=== PATIENT | male | born 1955 | race Caucasian/White ===

== ENCOUNTER 2016-12-18 13:37 | Observation (INO) ==
[2016-12-18 14:24] LABS: MANUAL DIFF NEEDED? NO
--- NOTE | 2016-12-18 14:24 | Diag Imaging Result Doc PS360 ---
EXAM: CHEST-2 VIEWS HISTORY: CP TECHNIQUE: COMPARISON: 04/21/2011 FINDINGS: The lungs are well expanded. The heart is not enlarged. The vessels are not distended. There are no infiltrates. No pleural effusions. IMPRESSION: No acute abnormality. Electronically signed by Parrish Lee 12/18/2016 2:21 PM
[2016-12-18 14:32] LABS: BASO% 0.3 % (0.0-0.8); EOS# 0.35 X1000 (0.0-0.7); EOS% 6.1 % (0.0-10.0); HEMATOCRIT 41.1 % (42.0-52.0); HEMOGLOBIN 14.5 g/dL (14.0-18.0); LYMPH% 24.4 % (20.5-51.1); MCH 31.3 PG (27-31); MCHC 35.3 g/dL (33-37); MCV 88.8 FL (81-99); MONO# 0.72 X1000 (0.11-0.59); MONO% 12.5 % (1.7-9.3); MPV 10.9 FL (7.4-10.4); NEUT% 56.7 % (42.2-75.2); PLT 95 X1000 (130-400); RBC 4.63 XMIL (4.7-6.1)
[2016-12-18 14:36] LABS: INR 1.01; PROTIME 10.6 Seconds (9.2-11.7)
[2016-12-18 14:46] LABS: ALBUMIN 3.9 g/dL (3.5-5.0); CALCIUM 10.1 mg/dL (8.8-10.2); MAGNESIUM 1.8 mg/dL (1.5-2.7); TOTAL BILIRUBIN 0.71 mg/dL (0.20-1.00); TOTAL PROTEIN 6.4 g/dL (6.3-8.3)
[2016-12-18] MEDS ORDERED: ASPIRIN PO ONE (15:32)
[2016-12-18] MEDS ORDERED: ZOFRAN IV ONE (17:00)
[2016-12-18] MEDS ORDERED: MORPHINE IV ONE (17:00)
--- NOTE | 2016-12-18 17:17 | PROVIDER DOCUMENTATION ---
This chart was entered by Lynda Galloway Scribe, acting as scribe for Patricio Alvarado MD. HPI-Chest Pain - General Chief Complaint: Chest Pain Stated Complaint: CP Time Seen by Provider: 12/18/16 14:26 Source: patient Allergies/Adverse Reactions: Patient Allergies Allergy/AdvReac Type Severity Reaction Status Date / Time etodolac [From Lodine] Allergy Mild RASH Verified 10/08/12 10:15 Home Medications: Home Medication List Medication Instructions Recorded Confirmed Last Taken Type Allopurinol 300 mg PO DAILY 10/08/12 10/08/12 03/05/13 08:00 History Cetirizine HCl [Zyrtec] 10 mg PO DAILY 10/08/12 10/08/12 03/05/13 08:00 History Gabapentin [Neurontin] 300 mg PO 4XDAY 10/08/12 10/08/12 03/05/13 08:00 History Hydrochlorothiazide 25 mg PO DAILY 10/08/12 10/08/12 03/05/13 08:00 History Insulin Detemir [Levemir] 36 units SQ DAILY 10/08/12 10/08/12 03/05/13 08:00 History Insulin Lispro [Humalog] 10 units SQ TID 10/08/12 10/08/12 03/05/13 08:00 History Omeprazole 20 mg PO DAILY 10/08/12 10/08/12 03/05/13 08:00 History SIMVAstatin [Zocor] 20 mg PO QHS 10/08/12 10/08/12 03/05/13 08:00 History Sitagliptin Phos/Metformin HCl 1 each PO BID 10/08/12 10/08/12 03/05/13 20:00 History [Janumet 50-1,000 mg Tablet] Topiramate 25 mg PO BID 10/08/12 10/08/12 10/08/12 06:00 History - History of Present Illness-CP Nature of Presenting Problem: Pt is a 61 year old male who came to the ED with a cc of chest pain that started this morning. The pt reports that the chest pain was tight and radiating out into in left arm. Pt denies N/V. No hemotysis. Location: reports: central Chest Pain Radiation: reports: arms (Left) Quality of Pain: reports: tightness Severity in ED: mild Onset/Duration: this morning Timing: still present Context/Activities at Onset: reports: none Modifying Factors: improves with: nothing Associated Symptoms: reports: denies symptoms Nitro Today/Relief: no nitro taken today Aspirin Treatment Today: no aspirin today Prior Chest Pain/Cardiac Workup: reports: no prior chest pain Similar Symptoms Previously?: No Recently Seen Here or By Another Healthcare Provider: No Review of Systems - Adult - REVIEW OF SYSTEMS - ADULT Constitutional: denies: chills, fever Eyes: reports: no symptoms reported Ears, Nose, Mouth & Throat: denies: sinus problem, mouth/dental pain Cardiovascular: reports: chest pain. denies: heart murmur, orthopnea Respiratory: denies: cough, shortness of breath Gastrointestinal: reports: no symptoms reported Genitourinary: reports: no symptoms reported Musculoskeletal: reports: no symptoms reported Integumentary: reports: no symptoms reported Neurological: reports: headache/migraines. denies: numbness, seizure Psychiatric: reports: no symptoms reported Endocrine: reports: no symptoms reported Hematologic/Lymphatic: reports: no symptoms reported Allergic/Immunologic: reports: no symptoms reported All Other Systems: Reviewed and Negative Past History - Adult - PAST MEDICAL HISTORY-ADULT Review of Records: reports: Nursing Assessment Review Major Childhood Illnesses: reports: denies history Cardiovascular: reports: cardiac disease, HTN Respiratory: reports: denies history Gastrointestinal: reports: GERD Obstetrical/Gynecological: reports: denies history Genitourinary: reports: denies history Musculoskeletal: reports: denies history Neurological: reports: denies history Endocrine/Immune: reports: Diabetes Other Conditions: reports: denies history - IMMUNIZATION STATUS Childhood Immunizations: See Nurse Assessment Flu Vaccine: See Nurse Assessment - FAMILY HISTORY Family History: reviewed, not pertinent Physical Exam-General - PHYSICAL EXAM-ADULT Initial Vital Signs Reviewed: Yes - CONSTITUTIONAL General Appearance: appears well, alert, no apparent distress - EYES Eyes: PERRL/EOMI, pink conjunctivae - HEAD, EARS, NOSE, MOUTH & THROAT HENMT: normocephalic/atraumatic, moist mucous membranes - NECK Neck: non-tender, full range of motion - RESPIRATORY Respiratory: chest non-tender, lungs clear - CARDIOVASCULAR Cardiovascular: normal peripheral pulses, regular rate, rhythm - GASTROINTESTINAL (ABDOMEN) Abdominal Exam: normal bowel sounds, non tender, hernia - MUSCULOSKELETAL Back Exam: normal inspection, no CVA tenderness Extremity: normal range of motion, non-tender - SKIN Integumentary: normal color, normal turgor - NEUROLOGIC Neurologic: grossly normal - PSYCHIATRIC Psych/Mental Status: normal mood/affect, normal thought content, normal thought process, oriented x 3 Progress - PLAN OF CARE/RESULTS Progress/Plan/Lab Results: Vital Signs - 8 hr 12/18/16 13:39 12/18/16 15:44 Temperature 97.6 F Pulse Rate 77 75 Respiratory Rate 18 24 Blood Pressure 173/68 147/99 O2 Sat by Pulse Oximetry 100 97 Laboratory Results - last 24 hr 12/18/16 12/18/16 12/18/16 13:52 13:52 13:52 WBC 5.74 RBC 4.63 L Hgb 14.5 Hct 41.1 L MCV 88.8 MCH 31.3 H MCHC 35.3 RDW Std Deviation 14.2 Plt Count 95 L MPV 10.9 H Immature Gran % (Auto) 0.0 Neut % (Auto) 56.7 Lymph % (Auto) 24.4 [place] % (Auto) 12.5 H Eos % (Auto) 6.1 Baso % (Auto) 0.3 Immature Gran # (Auto) 0.00 Neut # (Auto) 3.25 Lymph # (Auto) 1.40 [place] # (Auto) 0.72 H Eos # (Auto) 0.35 Baso # (Auto) 0.02 PT INR PTT (Actin FS) D-Dimer < 0.10 Sodium 134 L Potassium 4.0 Chloride 96 L Carbon Dioxide 25 Anion Gap 13 BUN 26 H Creatinine 1.4 H Estimated GFR/1.73 m2 52 BUN/Creatinine Ratio 19 Glucose 336 H Calculated Osmolality 286 Calcium 10.1 Magnesium 1.8 Total Bilirubin 0.71 AST 21 ALT 20 Alkaline Phosphatase 175 H Creatine Kinase 62 Troponin T Fcp-M-Nzctaokluxk Pept Total Protein 6.4 Albumin 3.9 Globulin 2.5 Albumin/Globulin Ratio 1.6 12/18/16 12/18/16 12/18/16 13:52 13:52 13:52 WBC RBC Hgb Hct MCV MCH MCHC RDW Std Deviation Plt Count MPV Immature Gran % (Auto) Neut % (Auto) Lymph % (Auto) [place] % (Auto) Eos % (Auto) Baso % (Auto) Immature Gran # (Auto) Neut # (Auto) Lymph # (Auto) [place] # (Auto) Eos # (Auto) Baso # (Auto) PT 10.6 INR 1.01 PTT (Actin FS) 26.0 D-Dimer Sodium Potassium Chloride Carbon Dioxide Anion Gap BUN Creatinine Estimated GFR/1.73 m2 BUN/Creatinine Ratio Glucose Calculated Osmolality Calcium Magnesium Total Bilirubin AST ALT Alkaline Phosphatase Creatine Kinase Troponin T < 0.010 Hiy-G-Jfqiisfaawu Pept 27 Total Protein Albumin Globulin Albumin/Globulin Ratio Orders Category Date Time Status Cardiac Monitoring DIRECTED Care 12/18/16 13:43 Active Saline Loc NOW Care 12/18/16 13:43 Active CHEST-2 VIEWS [RAD] Stat Exams 12/18/16 13:43 Completed CBC WITH ELECTRONIC DIFF [HEME] Stat Lab 12/18/16 13:52 Completed CK PROFILE [SP CHEM] Stat Lab 12/18/16 13:52 Completed COMPREHENSIVE METABOLIC PANEL [CHEM] Stat Lab 12/18/16 13:52 Completed D-DIMER [CHEM] Stat Lab 12/18/16 13:52 Completed MAGNESIUM [CHEM] Stat Lab 12/18/16 13:52 Completed PRO B-NATRIURETIC PEPTIDE Stat Lab 12/18/16 13:52 Completed PROTIME WITH INR [COAG] Stat Lab 12/18/16 13:52 Completed PTT [COAG] Stat Lab 12/18/16 13:52 Completed TROPONIN T Stat Lab 12/18/16 13:52 Completed Aspirin Med 12/18/16 15:32 Discontinued 325 mg PO NOW ONE Morphine Med 12/18/16 17:00 Once 4 mg IV NOW ONE Ondansetron [Zofran] Med 12/18/16 17:00 Once 4 mg IV NOW ONE EKG [EKG] Stat Ther 12/18/16 13:43 Ordered Result Diagrams: 12/18/16 13:52 12/18/16 13:52 - REASSESSMENT Reassessment #1 Time Reassessed: 17:01 (Pt is made aware of his treatment) Status: improving - CONSULTS/PCP/HOSPITALIST Notification #1 *Consult/PCP/Hospitalist*: Dr. Singh Time Discussed: 17:11 Consult Disposition: Admit (Spoke with Dr. Singh and made aware of reason for consult. Says that he will come to see patient in ED. Made aware that patient is stable.) Departure - Departure Time of Disposition Decision: 17:00 DIAGNOSIS: Chest pain, rule out acute myocardial infarction Disposition: ADMITTED INPATIENT 09 Certified Medical Emergency: Emergent Condition: Stable Referrals and Follow-Ups: Carlyle Stern [Primary Care Provider] - - Critical Care Note This patient required my direct & personal management of CC.: No This chart was documented by the indicated scribe, (Lynda Galloway Scribe) and accurately reflects the services I performed and decisions made by me, Patricio Alvarado MD, as attested by the provider's signature.
[2016-12-18] MEDS ORDERED: ZOFRAN IV PRN (17:44)
[2016-12-18] MEDS ORDERED: NS 1,000 ML IV SCH (17:44)
[2016-12-18] MEDS: SODIUM CHLORIDE 0.9% INJ SCH (18:46)
[2016-12-18] MEDS: PROTONIX IV SCH (18:46)
[2016-12-18] MEDS: LOVENOX SUBQ SCH (18:47)
--- NOTE | 2016-12-18 19:50 | HISTORY AND PHYSICAL ---
PRIMARY CARE PHYSICIAN: Dr. Au PRESENTING COMPLAINT: Chest pain. HISTORY OF PRESENT COMPLAINT: Mr. Vernon is a 61-year-old male with a history of insulin-dependent diabetes, type 2, hypertension, dyslipidemia, who presented to the emergency department with acute onset left-sided chest pain with radiation to the left arm. According to the patient, he just workup early this morning, without doing any form of work, he started feeling this chest pressure which lasted for over an hour, radiating to the left side of his arm. According to him, it felt like a pressure. It was about 8/10, and there was not any alleviating factors. According to him, it was associated with some headaches, but no nausea, no sweatiness, no syncope episode. The patient decided to come to the emergency department where he was evaluated. Initial presentation, blood pressure was 173/68. Because of his risk factors it was deemed necessary to admit him for further cardiac risk stratification. PAST MEDICAL HISTORY: 1. Hypertension. 2. Diabetes. 3. Dyslipidemia. 4. Gout. 5. Remote history of tobacco abuse. 6. Remote history of cirrhosis. PAST SURGICAL HISTORY: 1. Left shoulder arthroscopic surgery. 2. Left leg surgery. 3. Right finger surgery. ALLERGIES: Etodolac. FAMILY HISTORY: Positive for multiple family members with vascular aneurysms. SOCIAL HISTORY: Patient lives in [place]. He is , active worker. Denies any alcohol use. Has a remote tobacco history, but stopped about 10 years ago. However, patient smoked over 15 years and used to smoke about 1-2 packs per day. REVIEW OF SYSTEMS: A 14 point review of systems conducted with the patient. Denies any except what we have in the HPI. Specifically, patient denies any shortness of breath. Denies any syncope, denies cough. No abdominal pain. No urinary symptoms. OBJECTIVE: Vital signs: Blood pressure currently 147/99, pulse of 75, respirations 24, temperature is 97.6 degrees. General: Mr. Vernon is a 61-year-old male. He is in bed. He looks overweight with a BMI of 34. He was not in any distress. HEENT: Mucosa is pink and moist. Anicteric and acyanotic. Neck: Supple. Head is normocephalic and atraumatic. There is no JVD or carotid bruit. Chest: Good air entry bilaterally. No crepitations. No rhonchi. Cardiovascular: Regular rate and rhythm. There are no murmurs, no rubs, no gallops. Abdomen: Distended, mildly tender in the epigastrium. Bowel sounds are present. There is no hepatosplenomegaly. Extremities: No pedal edema. Distal pulses are present and they are regular. [employer]: Patient is awake, alert, oriented x4. Executive functions are normal. Cerebellar functions are intact. Sensory: There is not any sensory deficit. Motor is 5/5 in all extremities. Cranial nerves 2-12 have grossly been examined and they are normal. Musculoskeletal: Mild tenderness under the left breast. Psychiatric: Patient has normal affect and good judgment and insight. LABORATORY DATA: WBC is 5.74 hemoglobin is 14.5, platelet count of 95,000. Chemistry: Sodium is 134, potassium is 9, chloride is 95, bicarb is 26, BUN is 26, creatinine is 1.4, glucose is 336, calcium is 10.1, proBNP is 27, initial troponin is 0.01. IMAGING/DIAGNOSTICS: A chest x-ray which was done on presentation shows no acute abnormality. An EKG is normal sinus rhythm. There are not any acute ST-segment changes. No T-wave abnormalities. ASSESSMENT: Mr. Vernon is a 61-year-old male who presented with an acute onset of left-sided chest pressure/pain. The patient is going to be admitted for cardiac risk stratification. 1. Chest pain. 2. Uncontrolled diabetes mellitus. 3. Acute kidney injury. 4. Uncontrolled hypertension. 5. History of gout. 6. Left chest wall tenderness suggestive of musculoskeletal. 7. Epigastric tenderness. Possible underlying gastroesophageal reflux disease/gastritis. 8. Volume depletion. 9. Morbid obesity with body mass index of 34. PLAN: 1. We are going to admit the patient to medical floor with cardiac tech. We are going to restart him on his home medications for his comorbidities management. 2. We will also put the patient on sliding scale to help with further insulin needs. 3. We will start him on a gentle hydration to improve his renal perfusion and repeat his renal functions for tomorrow. 4. Patient will get a repeat electrocardiogram. We would trend his troponins 3 times. Get an echo tomorrow morning and a stress test tomorrow morning. If the cardiac workup is completely negative, patient can be discharged to follow up with his primary care doctor and also possible follow up with outpatient Gastroenterology to make sure he does not have any ulcers. cc: Vikas Singh MD
[2016-12-18] MEDS ORDERED: NORCO-7.5 PO PRN (20:00)
[2016-12-18] MEDS: TOPAMAX PO SCH (20:20)
[2016-12-18] MEDS: ZOCOR PO SCH (20:20)
[2016-12-18] MEDS: NEURONTIN PO SCH (20:20)
[2016-12-18] MEDS: HUMULIN R SUBQ SCH (21:45)
[2016-12-19] MEDS: HUMULIN R SUBQ SCH ×5 (06:28→22:45)
[2016-12-19 06:29] LABS: MANUAL DIFF NEEDED? NO
[2016-12-19 06:41] LABS: BASO% 0.3 % (0.0-0.8); EOS# 0.34 X1000 (0.0-0.7); EOS% 5.8 % (0.0-10.0); HEMATOCRIT 39.7 % (42.0-52.0); HEMOGLOBIN 13.9 g/dL (14.0-18.0); HEMOGLOBIN A1C 10.3 % (4.8-6.0); LYMPH# 1.29 X1000 (1.2-3.4); LYMPH% 21.9 % (20.5-51.1); MCH 31.4 PG (27-31); MCV 89.8 FL (81-99); MONO# 0.61 X1000 (0.11-0.59); MONO% 10.3 % (1.7-9.3); MPV 10.3 FL (7.4-10.4); NEUT% 61.7 % (42.2-75.2); PLT 78 X1000 (130-400); RBC 4.42 XMIL (4.7-6.1)
[2016-12-19] MEDS ORDERED: INSULIN PEN NEEDLES ONE (06:46)
[2016-12-19 06:51] LABS: ALBUMIN 3.7 g/dL (3.5-5.0); CALCIUM 9.2 mg/dL (8.8-10.2); MAGNESIUM 1.6 mg/dL (1.5-2.7); POTASSIUM 4.8 mmol/L (3.5-5.1); TOTAL BILIRUBIN 0.92 mg/dL (0.20-1.00); TOTAL PROTEIN 5.8 g/dL (6.3-8.3)
--- NOTE | 2016-12-19 07:20 | EKG Report ---
Test Performed on : 12/18/2016 1:46:58 PM Test Reason : Chest Pain Blood Pressure : / mmHG Vent. Rate : 076 BPM Atrial Rate : 076 BPM P-R Int : 132 ms QRS Dur : 092 ms QT Int : 402 ms P-R-T Axes : 008 002 018 degrees QTc Int : 452 ms Normal sinus rhythm. Normal ECG When compared with ECG of 08-OCT-2012 08:14, No significant change was found Unconfirmed Result
--- NOTE | 2016-12-19 07:30 | EKG Report ---
Test Performed on : 12/19/2016 07:12:47 AM Test Reason : chest pain Blood Pressure : / mmHG Vent. Rate : 066 BPM Atrial Rate : 066 BPM P-R Int : 170 ms QRS Dur : 098 ms QT Int : 420 ms P-R-T Axes : 038 003 028 degrees QTc Int : 440 ms Normal sinus rhythm. Normal ECG When compared with ECG of 18-DEC-2016 13:46, No significant change was found Confirmed by Diego Rogers MD ([id number]) on 12/20/2016 8:20:45 AM
[2016-12-19] MEDS: LEVEMIR SUBQ SCH (11:47)
[2016-12-19] MEDS: TOPAMAX PO SCH ×2 (11:50→20:20)
[2016-12-19] MEDS: NEURONTIN PO SCH ×4 (11:50→20:20)
[2016-12-19] MEDS: ZYLOPRIM PO SCH (11:52)
[2016-12-19] MEDS: HUMALOG SUBQ SCH ×3 (12:08→18:21)
[2016-12-19] MEDS ORDERED: MORPHINE IV PRN (12:44)
[2016-12-19] MEDS ORDERED: NITROGLYCERIN SL PRN (12:45)
--- NOTE | 2016-12-19 13:40 | PROGRESS NOTE ---
DATE: 12/19/2016 SUBJECTIVE: The patient states that he has been having chest pain on and off all night. He rates his pain right now at about a 4-5/10. He states that his pain was relieved with morphine. OBJECTIVE: Vital Signs: Temperature 97.9 degrees, blood pressure 131/74, heart rate 66, respirations 20, O2 saturations 100% on 2 L nasal cannula. General: This is a morbidly obese male lying in bed in no acute distress. Head: Normocephalic, atraumatic. Heart: S1, S2. Normal. Regular rate and rhythm. Lungs: Clear to auscultation bilaterally. No wheezes, no rales. No rhonchi. Abdomen: Positive bowel sounds. Soft, obese, nontender, nondistended. Extremities: No edema. No cyanosis. No calf tenderness. Neurologic: The patient is alert and oriented x3. No focal neurologic deficits noted. LAB: BUN 25, creatinine 1.4, glucose 312, A1c 10, potassium 4.8. ASSESSMENT AND PLAN: 1. Chest pain. The patient had a cardiac catheterization done in 2012 that revealed normal coronaries. So far the patient has ruled out for myocardial infarction. The patient is scheduled to undergo a stress test tomorrow. Will continue on the current cardiac medications and order a lipid profile. 2. Uncontrolled diabetes mellitus type 2. The patient's blood sugars so far have been running in the 300s. Will restart the patient's Levemir and cover with sliding scale insulin. 3. Hypertension. Controlled. 4. Morbid obesity. Aware. 5. Diabetic neuropathy. Continue on gabapentin. 6. Deep vein thrombosis prophylaxis. Continue on Lovenox. cc: Sneha Souza MD
[2016-12-19] MEDS: ASPIRIN EC PO SCH (16:08)
[2016-12-19] MEDS: TOPROL XL PO SCH (16:08)
--- NOTE | 2016-12-19 17:44 | ECHO REPORT ---
ORDER DATE: 12/19/2016 TEST: Echocardiography report. MEASUREMENTS: Left ventricular end-diastolic diameter 5.1, systolic diameter 3.3, posterior wall thickness 1, septal thickness 1.3, left atrium 4.4, aortic root 3.3 SUMMARY: 1. Technically difficult study due to limited acoustic window quality, particularly limited apical acoustic window quality. 2. Minimal sclerosis of trileaflet aortic valve demonstrated with adequate aortic valve opening evident. Peak gradient across the aortic valve is 11 mmHg. Mitral, tricuspid, and pulmonic valves are without structural abnormality with trace mitral regurgitation, trace tricuspid regurgitation and mild pulmonic insufficiency. Estimated systolic PA pressure by Doppler is 35 mmHg. Aortic root is normal in size. 3. Normal left ventricular dimensions demonstrated. Estimated left ventricular ejection fraction appears to be at least 60%. Doppler suggests normal left ventricular diastolic function. Left atrium is mildly enlarged. Right atrium and right ventricle are normal in size with preserved right ventricular systolic function. 4. No pericardial effusion. 5. Appearance of inferior vena cava suggests normal central venous pressure. CONCLUSIONS: 1. Technically difficult study. 2. Trace tricuspid regurgitation with estimated systolic PA pressure of 35 mmHg. 3. Normal left ventricular ejection fraction without obvious wall motion abnormality. 4. Mild left atrial enlargement. cc: MD Vikas Zaman MD
[2016-12-19] MEDS: PROTONIX IV SCH (17:45)
[2016-12-19] MEDS: LOVENOX SUBQ SCH (17:46)
[2016-12-19] MEDS: SODIUM CHLORIDE 0.9% INJ SCH (17:46)
[2016-12-19] MEDS: ZOCOR PO SCH (20:20)
[2016-12-20] MEDS: HUMULIN R SUBQ SCH ×3 (06:13→16:32)
[2016-12-20 06:43] LABS: MAGNESIUM 1.9 mg/dL (1.5-2.7); POTASSIUM 4.8 mmol/L (3.5-5.1)
--- NOTE | 2016-12-20 07:03 | EKG Report ---
Test Performed on : 12/20/2016 06:31:08 AM Test Reason : chest pain Blood Pressure : / mmHG Vent. Rate : 070 BPM Atrial Rate : 070 BPM P-R Int : 178 ms QRS Dur : 098 ms QT Int : 432 ms P-R-T Axes : 041 -11 008 degrees QTc Int : 466 ms Normal sinus rhythm. Normal ECG When compared with ECG of 19-DEC-2016 07:12, (Unconfirmed) No significant change was found Confirmed by Diego Rogers MD ([id number]) on 12/20/2016 8:21:15 AM
[2016-12-20] MEDS ORDERED: LEXISCAN ONE (09:03)
[2016-12-20] MEDS: LEVEMIR SUBQ SCH (10:46)
[2016-12-20] MEDS: TOPAMAX PO SCH (10:47)
[2016-12-20] MEDS: ZYLOPRIM PO SCH (10:47)
[2016-12-20] MEDS: HUMALOG SUBQ SCH ×3 (10:48→16:33)
[2016-12-20] MEDS: NEURONTIN PO SCH ×3 (10:48→16:32)
[2016-12-20] MEDS: TOPROL XL PO SCH (10:48)
[2016-12-20] MEDS: ASPIRIN EC PO SCH (10:48)
[2016-12-20] MEDS ORDERED: LOVENOX ONE (13:15)
[2016-12-20] MEDS ORDERED: SODIUM CHLORIDE 0.9% 10 ML ONE (13:15)
[2016-12-20] MEDS ORDERED: NEURONTIN ONE (13:15)
[2016-12-20] MEDS ORDERED: PROTONIX ONE (13:16)
--- NOTE | 2016-12-20 14:33 | Diag Imaging Result Document ---
PROCEDURE NAME: MYOCARDIAL PERF SCAN, STR/REST - 12/20/2016 PROCEDURE: Lexiscan Cardiolite stress test. DESCRIPTION OF PROCEDURE IN DETAIL: Lexiscan was infused per standard protocol. There was no chest pain. Stress electrocardiogram was negative for ischemia. Following Lexiscan infusion, Cardiolite was injected. Total of 14.8 mCi of Cardiolite was injected for the rest phase; 43.9 mCi of Cardiolite was injected for the stress phase. Gated SPECT images were obtained in standard views. Images revealed significant chest wall attenuation. There is a small-sized, low-grade reversible perfusion defect in the left ventricular apex. This is likely to represent attenuation defect. Low probability of ischemia. Would recommend clinical correlation. Left ventricular ejection fraction 65%. Wall motion was normal. CONCLUSIONS: 1. No chest pain. 2. Negative Lexiscan stress electrocardiogram. 3. Myocardial perfusion image revealed low-grade, small-sized, reversible defect in the left ventricular apex. This could represent attenuation defect. There is significant attenuation. There is low probability of ischemia. Would recommend clinical correlation. 4. Left ventricular ejection fraction 65%. Wall motion was normal. cc: MD Sneha Ann MD
--- NOTE | 2016-12-20 15:06 | PROGRESS NOTE ---
DATE: 12/20/2016 SUBJECTIVE: The patient states that he still has intermittent chest pain. He is scheduled for a stress test today. OBJECTIVE: Vital Signs: Temperature 97 degrees, blood pressure 133/68, heart rate 71, respirations 18, O2 saturations 99% on room air. General: This is a morbidly obese male sitting in bed in no acute distress. Head: Normocephalic, atraumatic. Heart: S1, S2. Normal. Regular rate and rhythm. Lungs: Clear to auscultation bilaterally. No wheezes, no rales. No rhonchi. Abdomen: Positive bowel sounds. Soft, obese, nontender, nondistended. LABS: Sodium 140, potassium 4.8, chloride 104, CO2 25, BUN 23, creatinine 1.3, glucose 218, total cholesterol 105, LDL 49. ASSESSMENT AND PLAN: 1. Chest pain. The patient is scheduled for a stress test today. Cardiology has also been consulted for further recommendations. 2. Chronic kidney disease. Stable. 3. Uncontrolled diabetes mellitus type 2. Continue on the current insulin regimen. 4. Thrombocytopenia. This appears to be chronic. Will discontinue the Lovenox. 5. Morbid obesity. Aware. 6. Hypertension. Controlled. cc: Sneha Souza MD
[2016-12-20 15:21] VITALS: BP 130/76
--- NOTE | 2017-01-01 19:31 | DISCHARGE SUMMARY ---
ADMISSION DATE: 12/18/2016 DISCHARGE DATE: 12/20/2016 FINAL DISCHARGE DIAGNOSIS: 1. Atypical chest pain. 2. Chronic kidney disease. 3. Uncontrolled diabetes mellitus type 2. 4. Morbid obesity. 5. Chronic thrombocytopenia. 6. Hypertension. HOSPITAL COURSE: Mr. Vernon is a 61-year-old male with a history of multiple medical problems, who presented to the ER with chest pain. The patient had serial cardiac enzymes ordered and was monitored on telemetry and there were no arrhythmias noted and the patient's enzymes remain negative. A myocardial perfusion stress and rest scan was done on December 20, 2016 that was noted to be unremarkable. The patient stated that he no longer had chest pain. He was ultimately cleared for discharge home on December 20, 2016. DISCHARGE MEDICATIONS: 1. Aspirin 81 mg p.o. daily. 2. Cozaar 50 mg p.o. daily. 3. Levemir 42 units subcutaneous at bedtime. 4. Neurontin 300 mg p.o. 3 times a day. 5. Janumet 1 tablet oral twice a day. 6. Hydrochlorothiazide 25 mg p.o. daily. 7. Omeprazole 20 mg p.o. daily. 8. Allopurinol 300 mg p.o. daily. 9. Nadolol 40 mg p.o. daily. 10. Topamax 25 mg p.o. twice a day. DISCHARGE DIET: An 1800 ADA diet, low-sodium diet. ACTIVITY: As tolerated. FOLLOWUP INSTRUCTIONS: The patient will need to follow up with his primary care physician in 1 week. cc: Sneha Souza MD
== END 2016-12-20 17:15 | disposition home or self-care (01) ==
LOC: ED 13:37 → INTOOBSV 18:00 → SUATTDRO 18:00 → 3N 18:00
PROVIDERS: ATTEND Internal Medicine